=== PATIENT | female | born 1970 | race African-American/Black ===

== ENCOUNTER 2017-07-09 14:10 | Emergency (ER) | payer SELFPAY ==
[2017-07-09 14:26] VITALS: BP 172/108; BMI 33.6
[2017-07-09] MEDS ORDERED: TORADOL 60 MG VIAL IM ONE (14:59)
[2017-07-09] MEDS ORDERED: NORFLEX INJ IM ONE (14:59)
[2017-07-09] MEDS ORDERED: TORADOL 60 MG VIAL ONE (15:00)
[2017-07-09] MEDS ORDERED: NORFLEX INJ ONE (15:00)
--- NOTE | 2017-07-09 15:03 | DR.GENAD ---
HPI - PCP Primary Care Physician: MACHELLE - HPI Comment HPI Comment: GETTING WORSE. NO TRAUMA. DENIES FEVER OR DYSURIA. - Complaint/Symptoms Chief Complaint Doctors Comments: BAND LIKE PAIN ACROSS LEFTFLANK ABDOMEN AND BACK TIMES 3 DAYS. Chief Complaint:: PT C/O PULLED MUSCLE TO MID-BACK THIS PAST SUNDAY. PT STATES SHE HAS BEEN TAKING MOTRIN 800MG PO, BUT THE PAIN IS GETTING WORSE. - Nurses notes reviewed Nurses Notes Review: Yes - Source History Provided: Patient - Mode of Arrival Mode of Arrival: Ambulatory - Timing Onset of Chief Complaint: 07/06/17 Came on: Suddenly - Duration Duration: Constant Duration: Days - Severity Severity: Moderate PMH - PMH Past Medical History: No Past Surgical History: Yes Surgical History: Abdominal Surgery - Family History History of Family Medical Conditions: Yes Family Medical History: Diabetes Mellitus - Social History Does any household member use tobacco: No Alcohol Use: Occasionally Do you use any recreational Drugs:: No Lives With: Family Lives Where: Home - infectious screening In the last 2 months have you had wt loss of >10#?: NO Have you had fever, night sweats or hemotysis?: No Have you traveled outside the country in the last 6 months?: No Isolation: Standard ROS - Review of Systems Constitutional: No Symptoms Reported Eyes: No Symptoms Reported ENTM: No Symptoms Reported Respiratoy: No Symptoms Reported Cardiovascular: No Symptoms Reported Gastrointestinal/Abdominal: Abdominal Pain Genitourinary: No Symptoms Reported. negative: Dysuria, Frequency, Hematuria Neurological: No Symptoms Reported Musculoskeletal: Back Pain, Back Integumentary: No Symptoms Reported Hematologic/Lymphatic: No Symptoms Reported Endocrine: No Symptoms Reported All Other Systems: Reviewed and Negative PE - Vital Signs Vitals: Temperature 96.7 F Pulse Rate 82 Respiratory Rate 20 Blood Pressure 172/108 O2 Sat by Pulse Oximetry 97 - General Limitations: No Limitations General Appearance: Alert - Head Head Exam: Normal Inspection - Eyes Eye exam: Normal Appearance - ENT ENT Exam: Normal External Ear Exam External Ear Exam: Normal External Inspection TM/Canal Exam: Bilateral Normal Nose Exam: Normal Nose Exam Mouth Exam: Normal Inspection Throat Exam: Normal Inspection - Neck Neck Exam: Trachea Midline - Chest Chest Inspection: Symmetric Chest Wall Rise - Respiratory Respiratory Exam: Normal Lung Sounds Bilat Respiratory Exam: Bilateral Clear to Auscultation - Cardiovascular Cardiovascular Exam: Regular Rate, Normal Rhythm, Normal Heart Sounds - Abdominal Exam Abdominal Exam: Normal Bowel Sounds, Soft. negative: Tenderness - Extremities Extremities Exam: Normal Inspection - Back Back Exam: (L) CVA Tenderness, Paraspinal Tenderness - Neurologic Neurological Exam: Alert, Oriented X3 - Psychiatric Psychiatric Exam: Normal Affect, Normal Mood - Skin Skin Exam: Normal Color MDM - Additional Information Additional Information Obtained From: Family - Differential Diagnosis Differential Diagnosis: BACK PAIN, LEFT FLANK PAIN. UTI. KIDNEY STONE RADICULOPATHY, Course - Treatment Treatment: SEE REPORT. IM TORADOL AND NORFLEX. PAIN SLIGHT DECREASE. STILL HURTING. PATIENT TO TAKE TYLENOL 3 AT HOME ALSO FOR PAIN. - Education/Counseling Education/Counseling: Patient, Education Educated On: Treatment, Diagnosis, Needs for Follow Up ROR - Labs Reviewed Laboratory Results Reviewed?: Yes Laboratory: Specimen Type Clean catch urine 07/09/17 16:21 Urine Color Yellow (YELLOW) 07/09/17 16:21 Urine Appearance Clear (CLEAR) 07/09/17 16:21 Urine pH 6.0 (5.0 - 8.0) 07/09/17 16:21 Ur Specific Success 1.015 (1.000-1.030) 07/09/17 16:21 Urine Protein 1+ (NEGATIVE) 07/09/17 16:21 Urine Glucose (UA) Negative (NEGATIVE) 07/09/17 16:21 Urine Ketones Negative (NEGATIVE) 07/09/17 16:21 Urine Occult Blood 3+ (NEGATIVE) 07/09/17 16:21 Urine Nitrite Negative (NEGATIVE) 07/09/17 16:21 Urine Bilirubin Negative (NEGATIVE) 07/09/17 16:21 Urine Urobilinogen Normal (NORMAL) 07/09/17 16:21 Ur Leukocyte Esterase Negative (NEGATIVE) 07/09/17 16:21 Urine RBC 8-15 /HPF (NEGATIVE) 07/09/17 16:21 Urine WBC 0 /HPF (NEGATIVE) 07/09/17 16:21 Ur Squamous Epith Cells Few /HPF (NEGATIVE) 07/09/17 16:21 Urine Bacteria Trace /HPF (NEGATIVE) 07/09/17 16:21 Ur Culture Indicated? No/not indicated 07/09/17 16:21 - XRAY XRAY Interpreted by: Radiologist XRAY Findings: REPORT DISCUSS WITH PATIENT. - Diagnosis Discharge Problem: Flank pain, Abdominal pain, Ovarian cyst Hematuria Qualifiers: Hematuria type: unspecified type Qualified Code(s): R31.9 - Hematuria, unspecified - Discharge Plan Disposition: HOME, SELF-CARE Condition: Stable Prescriptions: Acetaminophen with Codeine [Tylenol/Codeine #3 300-30 mg] 1 tab PO Q4-6H PRN # 15 tab PRN Reason: Pain Cyclobenzaprine HCl [FLEXERIL 10 MG *] 10 mg PO TID #20 tab Ibuprofen [MOTRIN TAB 800 MG *] 800 mg PO Q8H PRN #30 tab PRN Reason: Pain/Inflammation - Follow ups/Referrals Follow ups/Referrals: Rod Back [Primary Care Provider] - 3 days - Instructions Instructions: Abdominal Pain, Adult, [id number], Ovarian Cyst, [id number], Flank Pain, [id number] Additional Instructions: RETURN TO ED IF WORSE.
[2017-07-09 16:29] LABS: BILIRUBIN,URINE NEGATIVE (NEGATIVE); BLOOD/HEMOGLOBIN,URINE 3+ (NEGATIVE); GLUCOSE, URINE NEGATIVE (NEGATIVE); KETONES,URINE NEGATIVE (NEGATIVE); LEUKOCYTE ESTERASE ,URINE NEGATIVE (NEGATIVE); NITRITES,URINE NEGATIVE (NEGATIVE); PROTEIN,URINE 1+ (NEGATIVE); UROBILINOGEN,URINE NORMAL (NORMAL)
--- NOTE | 2017-07-09 16:31 | CT ---
HISTORY: Lower back pain Study: CT abdomen and pelvis without contrast Comparison: None Technique: Multiple axial images were obtained from the lung bases to the level of the ischial tuberosities with out the administration of IV contrast. Findings: The lung bases are clear. The liver, pancreas, and spleen are unremarkable in their noncontrast enhan julio c appearance. The bilateral adrenal glands are unremarkable as well. The kidneys are normal in appe arance and without caliceal stone or hydronephrosis. The ureters are normal in caliber as well. There is a 4 mm calcification just proximal to the expected location of the left ureterovesical junction. However, this calcifications favor to represent a phlebolith, as the left ureter is decompressed, and there are no perinephric or periureteral inflammatory changes appreciated. There no dilated loops of bowel present within the abdomen or pelvis. No free fluid or pathologic adenopathy is identified. No suspicious mesenteric stranding is appreciated. No extraluminal free air is identified. The patient appears to be status post right hemicolectomy. The remainder of the colon is unremarkable. Within the lower right hemipelvis there is a 2.6 cm low attenuating structure which most likely represents a ri ght ovarian or parovarian cyst. This may be correlated with pelvic sonography as clinically indicated . The urinary bladder is grossly unremarkable. The bony structures are intact. IMPRESSION: 1. No acute intra-abdominal abnormality evident. Please see above discussion. 2. Likely right ovarian or parovarian cyst which may be correlated with pelvic sonography if clinical ly indicated. Reported By:
[2017-07-09 16:44] LABS: APPEARANCE,URINE CLEAR (CLEAR); BACTERIA,URINE TRACE /HPF (NEGATIVE); COLOR,URINE YELLOW (YELLOW); SQUAMOUS EPITHELIAL CELL,UR FEW /HPF (NEGATIVE)
== END 2017-07-09 16:53 | disposition home or self-care (01) ==
LOC: ER 14:19
DX: N83.201 Unspecified ovarian cyst, right side (principal); R10.84 Generalized abdominal pain; R31.9 Hematuria, unspecified
CPT/HCPCS: 74176; 81001; 96372; 96374; 99283; 99284; J1885; J2360

== ENCOUNTER 2017-08-19 03:15 | Emergency (ER) | payer SELFPAY ==
[2017-08-19 03:35] VITALS: BP 155/99; BMI 35.4
[2017-08-19] MEDS ORDERED: TORADOL 60 MG VIAL IM ONE (04:25)
[2017-08-19] MEDS ORDERED: PHENERGAN INJ 25 MG IM ONE (04:25)
--- NOTE | 2017-08-19 04:33 | DR.GENAD ---
HPI - PCP Primary Care Physician: - Complaint/Symptoms Chief Complaint Doctors Comments: Patient complains of left leg and thigh pain for the past 24 hours getting worst when she tries to walk. States she has been having problems lifting her left leg and has to left it with her hand and notice the upper part of her thigh appears to be swollen. States she is not sure if she bumped her leg at work or not. She is also having lower back pain but denies numbness or tingling or falling. She denies dysuria,hematuria, fever or chills. States the pain is 9 of 10. States she has taken tylenol today with little relief. Chief Complaint:: left thigh hurting cannot apply pressure when walking. started hurting around lunch yesterday and has got worse Self Treatment fo Chief Complaint: tylenol last dose 2330 - Nurses notes reviewed Nurses Notes Review: Yes - Source History Provided: Patient - Mode of Arrival Mode of Arrival: Ambulatory - Timing Onset of Chief Complaint: 08/19/17 Came on: Gradually - Duration Duration: Constant How lon Duration: Hours - Location Location: left leg and hip pain - Severity Severity: Moderate - Modifying Factors Worsens:: walking and movement Improves:: nothing PMH - PMH Past Medical History: Yes Past Medical History: Asthma, GERD, Kidney Stones Past Surgical History: Yes Surgical History: Appendectomy, Bowel Resection Past Surgical History Comment: 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 - Family History History of Family Medical Conditions: Yes Family Medical History: Diabetes Mellitus, Hypertension - Social History Does patient currently use any type of tobacco product: No Have you used tobacco products in the last 12 months: No Type of Tobacco Use: None Does any household member use tobacco: No Alcohol Use: Occasionally Do you use any recreational Drugs:: No Lives With: Alone Lives Where: Home - infectious screening In the last 2 months have you had wt loss of >10#?: NO Have you had fever, night sweats or hemotysis?: No Have you traveled outside the country in the last 6 months?: No Isolation: Standard ROS - Review of Systems Constitutional: No Symptoms Reported. negative: See HPI, Chills, Diaphoresis, Fever, Malaise, Weakness, Irritable, Fatigue, Loss of Appetite, Other Eyes: No Symptoms Reported ENTM: No Symptoms Reported, Nose Congestion Respiratoy: No Symptoms Reported Cardiovascular: No Symptoms Reported Gastrointestinal/Abdominal: No Symptoms Reported Genitourinary: No Symptoms Reported. negative: See HPI, Discharge, Dysuria, Frequency, Hematuria, Pain, Bleeding, Other Neurological: No Symptoms Reported, Problems Walking (left hip pain). negative : See HPI, Anxiety, Depressed, Emotional Problems, Headache, Numbness, Paresthesia, Pre-existing Deficit, Seizure, Tingling, Tremors, Weakness, Dizziness, Speech Problem, Other Musculoskeletal: No Symptoms Reported, Left, Hip Integumentary: No Symptoms Reported. negative: See HPI, Change in Color, Change in Hair/Nails, Dryness, Lesions, Lumps, Rash, Itching, Wound, Bruises, Juandice, Other Hematologic/Lymphatic: No Symptoms Reported Endocrine: No Symptoms Reported. negative: See HPI, Excessive Sweating, Flushing, Intolerance to Cold, Intolerance to Heat, Increased Hunger, Increased Thirst, Increased Urine, Unexplained Weight Gain, Unexplained Weight Loss, Failure to Thrive, Decreased Appetite, Other Psychiatric: No Symptoms Reported. negative: See HPI, Anxiety, Depression, Hallucinations, Excessive crying, Suicidal, Other PE - Vital Signs Vitals: Temperature 99.1 F Pulse Rate 76 Respiratory Rate 16 Blood Pressure 155/99 O2 Sat by Pulse Oximetry 97 - General Limitations: No Limitations General Appearance: Alert, In No Apparent Distress, In Distress (moderate) - Head Head Exam: Normal Inspection, Atraumatic, Normocephalic - Eyes Eye exam: Normal Appearance, PERRL, EOMI. negative: Scleral Icterus, Conjunctival Injection, Nystagmus, Miosis, Mydrasis, Periorbital Swelling, Periorbital Tenderness, Other - ENT ENT Exam: Normal Exam, Normal Oropharynx, Normal External Ear Exam, Mucous Membranes Moist, TM's Normal Bilaterally External Ear Exam: Normal External Inspection TM/Canal Exam: Bilateral Normal Nose Exam: Normal Nose Exam Mouth Exam: Normal Inspection. negative: Drooling, Trismus, Lip Swelling, Tongue Elevation, Tongue Swelling, Laceration, Other Throat Exam: Normal Inspection, Tonsillar Erythema - Neck Neck Exam: Normal Inspection, Full ROM, Trachea Midline - Chest Chest Inspection: Normal Inspection, Symmetric Chest Wall Rise. negative: Tenderness, Rash, Abscess, Other - Respiratory Respiratory Exam: Normal Lung Sounds Bilat Respiratory Exam: Bilateral Clear to Auscultation - Cardiovascular Cardiovascular Exam: Regular Rate, Normal Rhythm - Abdominal Exam Abdominal Exam: Normal Inspection, Normal Bowel Sounds, Soft Abdominal Tenderness: negative: RUQ, RLQ, LUQ, LLQ, Epigastrium, Suprapubic, Diffuse, Mild, Moderate, Severe, Other - Extremities Extremities Exam: Normal Inspection, Full ROM, Tenderness (right hip tender on palpation ) - Back Back Exam: Normal Inspection, Full ROM, Tenderness (tender L4 midline on palpation). negative: (R) Straight Leg Raise, (L) Straight Leg Raise - Neurologic Neurological Exam: Alert, Oriented X3, CN II-XII Intact, Reflexes Normal. negative: Normal Gait (gait not tested) - Psychiatric Psychiatric Exam: Normal Affect, Normal Mood - Skin Skin Exam: Warm, Dry, Intact, Normal Color ROR - Labs Reviewed Laboratory Results Reviewed?: Yes (all x-ray results reviewed and discussed with patient) - XRAY XRAY Interpreted by: Radiologist (CT lumbar: No evidence for traumatic injury of lumbar spine. Degenerative chanes Moderate bilateral L5-S1 facert arthropaty. Disc bulges L4-5) XRAY Findings: left femur: No abnormality left leg. left hip: No acte osseous or soft tiss - Diagnosis Discharge Problem: Degenerative disc disease at L5-S1 level, Left hip pain, L4-L5 disc bulge Acute low back pain Qualifiers: Back pain laterality: unspecified Sciatica presence: with sciatica - Discharge Plan Disposition: 01 HOME, SELF-CARE Condition: Stable Prescriptions: Ibuprofen [MOTRIN TAB 800 MG *] 800 mg PO BID PRN #30 tab PRN Reason: Pain/Inflammation Methylprednisolone Dosepak 4Mg [MEDROL DOSEPAK (4 mg tab x 21)] 1 na PO ONCE # 1 na - Follow ups/Referrals Follow ups/Referrals: Rod Back [Primary Care Provider] - 3 days LIZABETH BASS [STAFF PHYSICIAN] - 3 days - Instructions Instructions: Back Pain, Adult, [id number]-[id number], Degenerative Disk Disease, Herniated Disk, [id number], Sciatica, [id number]
[2017-08-19] MEDS ORDERED: PHENERGAN INJ 25 MG ONE (04:34)
--- NOTE | 2017-08-19 05:30 | RAD ---
Four views of the left femur Indication: Left hand pain after injury Findings: No acute fracture dislocation left leg. No localizing soft tissue swelling. Left hip and kn ee joint alignment are anatomic. Impression: No radiographic abnormality within the left leg. Reported By:
--- NOTE | 2017-08-19 05:33 | CT ---
CT lumbar spine without contrast Indication: Inability to lift left leg Comparison: None available Technique: Multiple axial images of the lumbar spine were obtained from the upper abdomen to the pelv is without administration of IV contrast. Sagittal and coronal reformats were performed and reviewed . Findings: Alignment of the lumbar spine is maintained. No evidence for acute cortical disruption or subluxatio n can be seen. The posterior elements appear unremarkable. The prevertebral soft tissues are normal in their appearance. In addition, the surrounding paraspinous soft tissues are unremarkable. Moderate bilateral L5-S1 right L4-5 facet arthropathy. Disc bulges at L4-5 and L5-S1 without causing moderate or severe spinal canal stenosis. IMPRESSION: No evidence for traumatic injury of the lumbar spine. Degenerative changes as described above. Please note lumbar spine MRI would be more sensitive in dete ction of spinal canal and bony neural foraminal narrowing. Reported By:
--- NOTE | 2017-08-19 05:36 | CT ---
CT pelvis without contrast Indication: Left hip pain Comparison: None available Technique: Multiple axial images of the pelvis were obtained from the iliac crest to the proximal thi gh without administration of IV contrast. Sagittal and coronal reformats were performed and reviewed . Findings: There is no acute fracture, dislocation or diastasis within the pelvis. Both femoral heads are well seated with their respective acetabuli. Visualized alignment of the lower lumbar spine is maintained. Mild degenerative changes are noted within both SI joints. Imaging of the deep pelvis demonstrates no acute inflammatory process, adenopathy or abnormal free fl uid. IMPRESSION: 1. No acute osseous or soft tissue abnormality within the pelvis. Reported By:
[2017-08-19] MEDS ORDERED: DECADRON INJ IM ONE (05:49)
[2017-08-19] MEDS ORDERED: DECADRON INJ ONE (05:51)
== END 2017-08-19 06:06 | disposition home or self-care (01) ==
LOC: ER 03:15
DX: M51.36 Other intervertebral disc degeneration, lumbar region (principal); M25.552 Pain in left hip; M51.06 Intervertebral disc disorders with myelopathy, lumbar region; M54.5 Low back pain
CPT/HCPCS: 72131; 72192; 73552; 96372; 99282; 99283; J1100; J1885; J2550

== ENCOUNTER 2017-10-18 05:39 | Emergency (ER) | payer BC ==
--- NOTE | 2017-10-18 05:49 | DR.GENAD ---
HPI - PCP Primary Care Physician: NFD - Complaint/Symptoms Chief Complaint:: PT STATES" I WAS BRUSHING MY TEETH AND I JUST STARTED GAGGING AND THEN MY CHEST STARTED HURTING AROUND MY HEART. I CAME ON TO WORK BUT IT JUST WON'T STOP HURTING" - Source History Provided: Patient - Mode of Arrival Mode of Arrival: Ambulatory - Timing Onset of Chief Complaint: 10/18/17 Came on: Suddenly - Duration Duration: Constant How lon Duration: Hours - Severity Severity: Severe - Modifying Factors Worsens:: deep beath, cough, pushing on anterior chest <BARRETT MOHAN - Last Filed: 10/18/17 07:06> - HPI Comment HPI Comment: HISTOEY BELOW. - Complaint/Symptoms Chief Complaint Doctors Comments: CHEST PAIN. - Nurses notes reviewed Nurses Notes Review: Yes <NYA ROBBINS - Last Filed: 10/18/17 14:40> PMH - PMH Past Medical History: Yes Past Medical History: Asthma, GERD, Kidney Stones Past Surgical History: Yes Surgical History: Appendectomy, Bowel Resection - Family History History of Family Medical Conditions: Yes Family Medical History: Diabetes Mellitus, Hypertension - Social History Do you use any recreational Drugs:: No Lives With: Family Lives Where: Home - infectious screening In the last 2 months have you had wt loss of >10#?: NO Have you had fever, night sweats or hemotysis?: No Have you traveled outside the country in the last 6 months?: No Isolation: Standard <BARRETT MOHAN N - Last Filed: 10/18/17 07:06> ROS - Review of Systems Constitutional: No Symptoms Reported Eyes: No Symptoms Reported ENTM: Nose Congestion Respiratoy: Dry Cough Cardiovascular: No Symptoms Reported Gastrointestinal/Abdominal: No Symptoms Reported Genitourinary: No Symptoms Reported Neurological: No Symptoms Reported Musculoskeletal: Chest wall Integumentary: No Symptoms Reported Hematologic/Lymphatic: No Symptoms Reported Endocrine: No Symptoms Reported Psychiatric: No Symptoms Reported <BARRETT MOHAN - Last Filed: 10/18/17 07:06> PE - General Limitations: No Limitations General Appearance: Alert - Head Head Exam: Normal Inspection - Eyes Eye exam: Normal Appearance - ENT ENT Exam: Normal Exam Throat Exam: Normal Inspection - Neck Neck Exam: Normal Inspection - Chest Chest Inspection: Symmetric Chest Wall Rise, Tenderness (tenderness greatest over left anterior chest wall muscles) - Respiratory Respiratory Exam: Normal Lung Sounds Bilat Respiratory Exam: Bilateral Clear to Auscultation - Cardiovascular Cardiovascular Exam: Regular Rate - Abdominal Exam Abdominal Exam: Normal Inspection - Extremities Extremities Exam: Normal Inspection - Back Back Exam: Normal Inspection - Neurologic Neurological Exam: Alert, Oriented X3, CN II-XII Intact - Psychiatric Psychiatric Exam: Anxious - Skin Skin Exam: Warm, Dry, Intact <BARRETT MOHAN - Last Filed: 10/18/17 07:06> - Vital Signs Vitals: Temperature 97.8 F Pulse Rate 82 Respiratory Rate 20 Blood Pressure 164/97 O2 Sat by Pulse Oximetry 99 MDM - Differential Diagnosis Differential Diagnosis: CHEST WALL PAIN, GASTRITIS, FL, PE <NYA ROBBINS - Last Filed: 10/18/17 14:40> Course - Treatment Treatment: SEE ORDERS. MED FOR INFLAMATION AND MUSCLE STRAIN GIVEN. MILD IMPROVEMENT. - Education/Counseling Education/Counseling: Patient, Education Educated On: Diagnosis, Needs for Follow Up <NYA ROBBINS - Last Filed: 10/18/17 14:40> ROR - Labs Reviewed Result Diagrams: 10/18/17 06:00 10/18/17 06:00 - EKG Rate: 78 Gorin: Normal Rhythm: NSR, ST (flipped ts in anterior leads and II and avr. No change in baseline) <BARRETT MOHAN - Last Filed: 10/18/17 07:06> - Labs Reviewed Laboratory Results Reviewed?: Yes Result Diagrams: 10/18/17 06:00 10/18/17 06:00 - XRAY XRAY Interpreted by: Radiologist XRAY Findings: REPORT DISCUSS WITH PATIENT. <NYA ROBBINS - Last Filed: 10/18/17 14:40> - Labs Reviewed Laboratory: WBC 5.6 X10^3/uL (3.6-10.0) 10/18/17 06:00 RBC 4.27 X10^6/uL (3.5-5.4) 10/18/17 06:00 Hgb 13.1 g/dL (12.0-16.0) 10/18/17 06:00 Hct 37.8 % (36.0-47.0) 10/18/17 06:00 MCV 88.5 fL (80.0-100.0) 10/18/17 06:00 MCH 30.7 pg (27.0-34.0) 10/18/17 06:00 MCHC 34.7 g/dL (33.0-35.0) 10/18/17 06:00 RDW 12.9 % (11.6-16.5) 10/18/17 06:00 Plt Count 384 X10^3/uL (150.0-450.0) 10/18/17 06:00 MPV 6.8 fL (7.4-11.0) L 10/18/17 06:00 Neut % (Auto) 39.5 % (42.0-75.0) L 10/18/17 06:00 Lymph % (Auto) 43.9 % (21.0-51.0) 10/18/17 06:00 [place] % (Auto) 10.1 % (0.0-13.0) 10/18/17 06:00 Eos % (Auto) 5.4 % (0.9-2.9) H 10/18/17 06:00 Baso % (Auto) 1.1 % (0.2-1.0) H 10/18/17 06:00 Neut # (Auto) 2.2 x10^3/uL (2.2-4.8) 10/18/17 06:00 Lymph # (Auto) 2.4 X10^3/uL (1.3-2.9) 10/18/17 06:00 Forest # (Auto) 0.6 x10^3/uL (0.3-0.8) 10/18/17 06:00 Eos # (Auto) 0.3 x10^3/uL (0.0-0.2) H 10/18/17 06:00 Baso # (Auto) 0.1 X10^3/uL (0.0-0.1) 10/18/17 06:00 Absolute Nucleated RBC 0.0 /100WBC 10/18/17 06:00 D-Dimer 116 ng/mL (0-400) 10/18/17 06:00 Sodium 143 mmol/L (136-145) 10/18/17 06:00 Corrected Sodium TNP 10/18/17 06:00 Potassium 3.5 mmol/L (3.5-5.1) 10/18/17 06:00 Chloride 107 mmol/L (98-107) 10/18/17 06:00 Carbon Dioxide 28.5 mmol/L (21-32) 10/18/17 06:00 BUN 11 mg/dL (7-18) 10/18/17 06:00 Creatinine 0.66 mg/dL (0.55-1.02) 10/18/17 06:00 Est GFR (MDRD) Af Amer > 60 (>60) 10/18/17 06:00 Est GFR (MDRD) Non-Af > 60 (>60) 10/18/17 06:00 Glucose 108 mg/dL (65-99) H 10/18/17 06:00 Calcium 8.6 mg/dL (8.5-10.1) 10/18/17 06:00 Corrected Calcium TNP 10/18/17 06:00 Total Bilirubin 0.70 mg/dL (0.2-1.0) 10/18/17 06:00 AST 38 Units/L (15-37) H 10/18/17 06:00 ALT 56 Units/L (12-78) 10/18/17 06:00 Alkaline Phosphatase 67 Units/L (46-116) 10/18/17 06:00 Creatine Kinase 202 Units/L (26-192) H 10/18/17 08:44 CK-MB (CK-2) 1.6 ng/mL (0-4.0) 10/18/17 08:44 CK/CKMB % Calc 0.8 % (<4) 10/18/17 08:44 Troponin I < 0.02 ng/mL (0-1.5) 10/18/17 08:44 Total Protein 8.0 g/dL (6.4-8.2) 10/18/17 06:00 Albumin 3.8 g/dL (3.4-5.0) 10/18/17 06:00 Globulin 4.2 g/dL (2.5-4.5) 10/18/17 06:00 Albumin/Globulin Ratio 0.9 Ratio (1.1-2.1) L 10/18/17 06:00 H. pylori IgG Antibody Negative (NEGATIVE) 10/18/17 06:00 <BARRETT MOHAN N - Last Filed: 10/18/17 07:06> <NYA ROBBINS - Last Filed: 10/18/17 14:40> - Diagnosis Discharge Problem: Chest wall pain, Chest pain, Musculoskeletal pain - Discharge Plan Disposition: 01 HOME, SELF-CARE Condition: Stable Prescriptions: Acetaminophen with Codeine [Tylenol/Codeine #3 300-30 mg] 1 tab PO Q6H PRN #15 tab PRN Reason: Pain Cyclobenzaprine HCl [FLEXERIL 10 MG *] 10 mg PO TID #20 tab Ibuprofen [MOTRIN TAB 800 MG *] 800 mg PO Q8H PRN #30 tab PRN Reason: Pain/Inflammation - Follow ups/Referrals Follow ups/Referrals: KARLENE,None [Primary Care Provider] - 10/19/17 BARRETT MOHAN [Emergency Provider] - 10/19/17 - Instructions Instructions: Chest Wall Pain, [id number], Musculoskeletal Pain, Chest Pain Observation Additional Instructions: RETURN TO ED IF WORSE.RETURN TO ED IF WORSE.
[2017-10-18] MEDS ORDERED: TORADOL 30 MG VIAL IM ONE (05:53)
[2017-10-18 06:02] VITALS: BP 164/97; BMI 35.6
[2017-10-18 06:07] LABS: BASOPHILS # (AUTO) 0.1 X10^3/uL (0.0-0.1); BASOPHILS % (AUTO) 1.1 % (0.2-1.0); EOSINOPHILS # (AUTO) 0.3 x10^3/uL (0.0-0.2); EOSINOPHILS % (AUTO) 5.4 % (0.9-2.9); HEMATOCRIT 37.8 % (36.0-47.0); HEMOGLOBIN 13.1 g/dL (12.0-16.0); LYMPHOCYTES # (AUTO) 2.4 X10^3/uL (1.3-2.9); LYMPHOCYTES % (AUTO) 43.9 % (21.0-51.0); MEAN CORPUSCULAR HEMOGLOBIN 30.7 pg (27.0-34.0); MEAN CORPUSCULAR HGB CONC 34.7 g/dL (33.0-35.0); MEAN CORPUSCULAR VOLUME 88.5 fL (80.0-100.0); MEAN PLATELET VOLUME 6.8 fL (7.4-11.0); MONOCYTES # (AUTO) 0.6 x10^3/uL (0.3-0.8); MONOCYTES % (AUTO) 10.1 % (0.0-13.0); NEUTROPHILS # (AUTO) 2.2 x10^3/uL (2.2-4.8); NEUTROPHILS % (AUTO) 39.5 % (42.0-75.0); PLATELET COUNT 384 X10^3/uL (150.0-450.0); RED BLOOD COUNT 4.27 X10^6/uL (3.5-5.4); RED CELL DISTRIBUTION WIDTH 12.9 % (11.6-16.5); WHITE BLOOD COUNT 5.6 X10^3/uL (3.6-10.0)
[2017-10-18] MEDS ORDERED: TORADOL 60 MG VIAL ONE (06:15)
[2017-10-18 06:28] LABS: ALANINE AMINOTRANSFERASE 56 Units/L (12-78); ALBUMIN 3.8 g/dL (3.4-5.0); ALKALINE PHOSPHATASE 67 Units/L (46-116); ASPARTATE AMINO TRANSFERASE 38 Units/L (15-37); BLOOD UREA NITROGEN 11 mg/dL (7-18); CALCIUM 8.6 mg/dL (8.5-10.1); CARBON DIOXIDE 28.5 mmol/L (21-32); CHLORIDE 107 mmol/L (98-107); CKMB % 0.9 % (<4); CREATINE KINASE 196 Units/L (26-192); CREATINE KINASE MB 1.7 ng/mL (0-4.0); CREATININE 0.66 mg/dL (0.55-1.02); SODIUM 143 mmol/L (136-145); TROPONIN I < 0.02 ng/mL (0-1.5); eGFR BLACK RACES > 60 (>60); eGFR NON BLACK RACES > 60 (>60)
--- NOTE | 2017-10-18 06:36 | RAD ---
HISTORY: Chest pain. Prior history of asthma. Study: Two-view chest Comparison: 03/25/2017. Findings: Trachea is midline. Heart size is normal. There is aortic uncoiling. The lungs and pleural spaces are clear. Osseous structures are intact. IMPRESSION: No acute cardiopulmonary disease. Reported By:
[2017-10-18] MEDS ORDERED: CITROMA PO ONE (06:58)
[2017-10-18] MEDS ORDERED: VIBRAMYCIN 100 MG in NS 100 ML IV + SPIKE MINIBAG* 100 ML IV SCH (07:00)
[2017-10-18] MEDS ORDERED: DECADRON INJ IM ONE (07:57)
[2017-10-18] MEDS ORDERED: NORFLEX INJ IM ONE (07:57)
[2017-10-18] MEDS ORDERED: PEPCID TAB 20 MG PO ONE (07:59)
[2017-10-18] MEDS ORDERED: ECOTRIN TAB 325 MG PO ONE (07:59)
[2017-10-18] MEDS ORDERED: DECADRON INJ ONE (08:04)
[2017-10-18] MEDS ORDERED: PEPCID TAB 20 MG ONE (08:05)
[2017-10-18] MEDS ORDERED: NORFLEX INJ ONE (08:05)
[2017-10-18] MEDS ORDERED: ASPIRIN ONE (08:05)
[2017-10-18] MEDS ORDERED: ROCEPHIN 1 GM IV PREMIX 1 GM/50 ML IV.SOLN. IV SCH (09:00)
[2017-10-18] MEDS ORDERED: ROBITUSSIN DM PO SCH (09:00)
[2017-10-18 09:37] LABS: CKMB % 0.8 % (<4); CREATINE KINASE 202 Units/L (26-192); CREATINE KINASE MB 1.6 ng/mL (0-4.0); TROPONIN I < 0.02 ng/mL (0-1.5)
[2017-10-18] MEDS ORDERED: TYLENOL #3 TAB (W/CODEINE) PO ONE ×2 (09:59→10:21)
== END 2017-10-18 10:26 | disposition home or self-care (01) ==
LOC: ER 05:39
DX: R07.89 Other chest pain (principal); M79.1 Myalgia; R94.31 Abnormal electrocardiogram [ECG] [EKG]
CPT/HCPCS: 36415; 71046; 80053; 82550; 82553; 84484; 85025; 85378; 86677; 93005; 93010; 96372; 99283; J1100; J1885; J2360